=== PATIENT | male | born 1985 | race Caucasian/White ===

== ENCOUNTER 2019-11-18 16:56 | Emergency (ER) | payer SELFPAY ==
[2019-11-18 17:45] VITALS: BP 142/80
[2019-11-18] MEDS ORDERED: Lidocaine 1% MPF ** 5 ML VIAL INJ ONE (18:05)
--- NOTE | 2019-11-18 18:05 | UC ---
Laceration HPI - HPI Summary HPI Summary: 33-year-old male who was at work when he was handling a glass vial which broke into just 2 pieces. It did not shatter. Last tetanus was 8 years ago. - History Of Current Complaint Chief Complaint: UCLaceration Stated Complaint: RIGHT THUMB LACERATION-WC Time Seen by Provider: 11/18/19 18:01 Hx Obtained From: Patient Laceration Location: Finger - Right thumb Onset/Duration: Sudden Onset Severity: Mild Pain Intensity: 2 Aggravating Factors: Movement Related History: Occupational Injury - Allergies/Home Medications Allergies/Adverse Reactions: Allergies Allergy/AdvReac Type Severity Reaction Status Date / Time No Known Allergies Allergy Verified 11/18/19 17:40 Home Medications: Home Medications NK [No Home Medications Reported] 11/18/19 [History Confirmed 11/18/19] PMH/Surg Hx/FS Hx/Imm Hx Previously Healthy: Yes - Surgical History Surgical History: None - Family History Known Family History: Positive: Non-Contributory - Social History Occupation: Employed Full-time Alcohol Use: None Substance Use Type: None Smoking Status (MU): Never Smoked Tobacco Type: Cigarettes Amount Used/How Often: 1/2 PPD Review of Systems All Other Systems Reviewed And Are Negative: Yes Skin: Positive: Other - Laceration distal right thumb Is Patient Immunocompromised?: No Physical Exam Triage Information Reviewed: Yes Appearance: Well-Appearing, No Pain Distress, Well-Nourished Vital Signs: Initial Vital Signs Temp 98.6 F 11/18/19 17:41 Pulse 69 11/18/19 17:41 Resp 16 11/18/19 17:41 BP 142/80 11/18/19 17:41 Pulse Ox 97 11/18/19 17:41 Vital Signs Reviewed: Yes Musculoskeletal Exam: Normal Musculoskeletal: Positive: Strength Intact, ROM Intact Neurological Exam: Normal Neurological: Positive: Alert Psychological Exam: Normal Skin: Positive: Other - 1.0 cm laceration to the distal right thumb. Bleeding is controlled. Good finger strength with flexion extension against resistance. Good peripheral pulses neuro sensation capillary refill. Laceration Repair - Laceration Repair 1 Description: Linear Laceration Size After Repair: Length (cm) - 1.0 cm Modified For Repair: No Type Injection: Local Anesthesia Used: 1.0% Lido Cleansing Completed Via Routine Prep: Yes Irrigation With Pressure Irrigation Device: Yes Closure Material: Sutures - Sutures placed numbered four Closure Method: Single Layer Suture Of: SQ Suture Type: Prolene - 4-0 Prolene Laceration Course/Dx - Course/Dx Course Of Treatment: The area was anesthetized with 1% lidocaine plain, it was then irrigated with copious amount normal saline by the nurse, it was then probed for foreign bodies and none were located. It wasn't sutured using 4-0 Prolene. Sutures placed numbered four. Patient tolerated the procedure well. A dry sterile bulky dressing was applied. He is traveling to [place] in 2 days from now and I advised in 7-8 days he can get the sutures removed at a local urgent care center or at [facility]. He is to change dressing daily and watch for signs of infection which were reviewed with the patient. If he develops an infection he is to follow-up sooner at an urgent care center. - Diagnosis Provider Diagnosis: Laceration of right thumb Discharge ED - Sign-Out/Discharge Documenting (check all that apply): Patient Departure All imaging exams completed and their final reports reviewed: No Studies - Discharge Plan Condition: Good Disposition: HOME Patient Education Materials: Care For Your Stitches (ED) Referrals: No Primary Care Phys,NOPCP [Primary Care Provider] - Additional Instructions: Change dressing in 24 hours, watch for signs of infection such as hot, red, tender, red streaks up her thumb or pus drainage and follow-up at an urgent care clinic if that happens. Sutures out in approximate 7 or 8 days. This can be done at any local urgent care Center or [facility] in [place]. - Billing Disposition and Condition Condition: GOOD Disposition: Home
[2019-11-18] MEDS ORDERED: Tetan/Diph/Pertus SYR(Tdap)* 0.5 ML SYR(BOOSTRIX) use SYR contains LATEX IM ONE (18:09)
== END 2019-11-18 19:07 | disposition home or self-care (01) ==
LOC: UCCORT 16:56
DX: S61.011A Laceration without foreign body of right thumb without damage to nail, initial encounter (principal); Z23 Encounter for immunization; W26.9XXA Contact with unspecified sharp object(s), initial encounter; Y92.9 Unspecified place or not applicable
CPT/HCPCS: 12001; 90471; 90715; 99201; G0463

== ENCOUNTER 2019-11-27 15:06 | Emergency (ER) | payer OTHER ==
--- NOTE | 2019-11-27 15:37 | UC ---
HPI Wound/Suture Re-check - HPI Summary HPI Summary: Suture removal of R thumb. 4 sutures. - History Of Current Complaint Chief Complaint: UCLaceration Stated Complaint: SUTURE REMOVAL-PLACED HERE Time Seen by Provider: 11/27/19 15:37 Hx Obtained From: Patient - Allergies/Home Medications Allergies/Adverse Reactions: Allergies Allergy/AdvReac Type Severity Reaction Status Date / Time No Known Allergies Allergy Verified 11/27/19 15:44 Home Medications: Home Medications NK [No Home Medications Reported] 11/18/19 [History Confirmed 11/27/19] PMH/Surg Hx/FS Hx/Imm Hx - Additional Past Medical History Additional PMH: no chronic issues Previously Healthy: Yes - Surgical History Surgical History: None - Family History Known Family History: Positive: Non-Contributory - Social History Alcohol Use: None Substance Use Type: None Smoking Status (MU): Never Smoked Tobacco Type: Cigarettes Amount Used/How Often: 1/2 PPD Review of Systems All Other Systems Reviewed And Are Negative: Yes Constitutional: Negative: Fever, Chills, Fatigue Skin: Negative: Rash, Bruising, Other Physical Exam Triage Information Reviewed: Yes Appearance: Well-Appearing Skin: Positive: Other - R thumb laceration healed, 4 simple interrupted sutures. Course/Dx - Course Course Of Treatment: 4 sutures removed from R thumb w/ no complications. Wound has healed well. - Differential Dx - Laceration/Wound Differential Diagnoses: Suture Removal, Other - Diagnosis Provider Diagnosis: Visit for suture removal Discharge ED - Sign-Out/Discharge Documenting (check all that apply): Patient Departure All imaging exams completed and their final reports reviewed: No Studies - Discharge Plan Condition: Good Disposition: HOME Patient Education Materials: Stitches Removal (ED) Referrals: No Primary Care Phys,NOPCP [Primary Care Provider] - Additional Instructions: Keep area cleaned. - Billing Disposition and Condition Condition: GOOD Disposition: Home
[2019-11-27 15:44] VITALS: BP 143/87
== END 2019-11-27 16:05 | disposition home or self-care (01) ==
LOC: UCCORT 15:06
DX: S61.011D Laceration without foreign body of right thumb without damage to nail, subsequent encounter (principal); X58.XXXD Exposure to other specified factors, subsequent encounter